=== PATIENT | female | born 1945 | race Caucasian/White ===

== ENCOUNTER 2016-06-19 10:49 | Emergency (ER) | payer MEDICARE, OTHER ==
[2016-06-19] MEDS ORDERED: DIPH/PERTUSS(ACELL)/TETANUS VAC/PF 0.5 ML SYR (>=10YO) IM ONE ×2 (11:33→12:45)
[2016-06-19] MEDS ORDERED: ACETAMINOPHEN 325 MG TABLET PO ONE (11:36)
--- NOTE | 2016-06-19 11:40 | ER Document Report ---
ED Medical Screen (RME) - General Stated Complaint: NOSE PAIN Time seen by provider: 11:35 Mode of Arrival: Ambulatory Information source: Patient Notes: 71-year-old female slipped on a monkey ball causing her face to hit the cement. She has an abrasion on the bridge of her nose. She did not have a nosebleed. She has a 3/5 frontal headache. No neck tenderness. I have greeted and performed a rapid initial assessment of this patient. A comprehensive ED assessment, evaluation of the patient, analysis of test results , and completion of the medical decision making process will be contacted by additional ED providers. 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
[2016-06-19] MEDS ORDERED: LIDOCAINE 1% INJ-PF (10 MG/ML) 30 ML SDV INJ ONE (12:56)
--- NOTE | 2016-06-19 13:33 | ER Document Report ---
ED General - General Chief Complaint: Facial Injury Stated Complaint: NOSE PAIN Mode of Arrival: Ambulatory Information source: Patient Notes: 71-year-old female presents after a mechanical fall striking her face. Patient denies any loss of consciousness, denies any other injuries. TRAVEL OUTSIDE OF THE [place] IN LAST 30 DAYS: No - HPI Onset: Just prior to arrival Onset/Duration: Sudden Quality of pain: Achy Severity: Mild Pain Level: Denies Associated symptoms: Other Exacerbated by: Denies Relieved by: Denies Similar symptoms previously: No Recently seen / treated by doctor: No - Related Data Allergies/Adverse Reactions: meperidine HCl [From Demerol] Allergy (Verified 06/19/16 11:32) Sulfa (Sulfonamide Antibiotics) Allergy (Verified 06/19/16 11:32) Past Medical History - General Information source: Patient - Social History Smoking Status: Never Smoker Cigarette use (# per day): No Chew tobacco use (# tins/day): No Smoking Education Provided: No Frequency of alcohol use: None Drug Abuse: None Family History: Reviewed & Not Pertinent Patient has suicidal ideation: No Patient has homicidal ideation: No - Past Medical History Cardiac Medical History: Reports: Hx Hypercholesterolemia, Hx Hypertension Endocrine Medical History: Reports: 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 Denies recent illness. EENT: Denies eye, ear, throat, or mouth pain or symptoms. Denies nasal or sinus congestion or discharge. Denies throat, tongue, or mouth swelling or difficulty swallowing. CARDIOVASCULAR: Denies chest pain. Denies palpitations or racing or irregular heart beat. Denies ankle edema. RESPIRATORY: Denies cough, cold, or chest congestion. Denies shortness of breath, difficulty breathing, or wheezing. GASTROINTESTINAL: Denies abdominal pain or distention. Denies nausea, vomiting , or diarrhea. Denies blood in vomitus, stools, or per rectum. Denies black, tarry stools. Denies constipation. GENITOURINARY: Denies difficulty urinating, painful urination, burning, frequency, blood in urine, or discharge. FEMALE GENITOURINARY: Denies vaginal bleeding, heavy or abnormal periods, irregular periods. Denies vaginal discharge or odor. MUSCULOSKELETAL: Denies back or neck pain or stiffness. Denies joint pain or swelling. SKIN: Admits to facial injury HEMATOLOGIC : Denies easy bruising or bleeding. LYMPHATIC: Denies swollen, enlarged glands. NEUROLOGICAL: Denies confusion or altered mental status. Denies passing out or loss of consciousness. Denies dizziness or lightheadedness. Denies headache. Denies weakness or paralysis or loss of use of either side. Denies problems with gait or speech. Denies sensory loss, numbness, or tingling. Denies seizures. PSYCHIATRIC: Denies anxiety or stress. Denies depression, suicidal ideation, or homicidal ideation. ALL OTHER SYSTEMS REVIEWED AND NEGATIVE. Dictation was performed using icix voice recognition software PHYSICAL EXAMINATION: GENERAL: Well-appearing, well-nourished and in no acute distress. HEAD: Superficial abrasions of the face nasal swelling EYES: Pupils equal round and reactive to light, extraocular movements intact, conjunctiva are normal. Left infraorbital ecchymosis ENT: Nares patent, oropharynx clear without exudates. Moist mucous membranes. NECK: Normal range of motion, supple without lymphadenopathy LUNGS: Breath sounds clear to auscultation bilaterally and equal. No wheezes rales or rhonchi. HEART: Regular rate and rhythm without murmurs ABDOMEN: Soft, nontender, nondistended abdomen. No guarding, no rebound. No masses appreciated. Female : deferred Musculoskeletal: Normal range of motion, no pitting or edema. No cyanosis. NEUROLOGICAL: Cranial nerves grossly intact. Normal speech, normal gait. Normal sensory, motor exams PSYCH: Normal mood, normal affect. SKIN: 2 cm laceration of the nasal bridge no active bleeding Physical Exam - Vital signs Vitals: Temp Pulse Resp BP Pulse Ox 97.7 F 71 18 148/76 H 98 06/19/16 11:03 06/19/16 11:03 06/19/16 11:03 06/19/16 11:03 06/19/16 11:03 Course - Re-evaluation Re-evalutation: 06/19/16 13:31 Area was anesthetized cleansed well 2 sutures were placed patient will be given follow-up in 3-5 days for reevaluation removal of sutures or immediately if there is any worsening symptoms or signs of infection or any other concerns After performing a Medical Screening Examination, I estimate there is LOW risk for INTRACRANIAL HEMORRHAGE, UNSTABLE SPINE FRACTURE, CENTRAL CORD SYNDROME, CAUDA EQUINA, THORACIC AORTIC DISSECTION, PNEUMOTHORAX, PERFORATED BOWEL, RUPTURED ABDOMINAL AORTIC ANEURYSM, ACUTE TENDON RUPTURE, COMPARTMENT SYNDROME, or OPEN FRACTURE, thus I consider the discharge disposition reasonable. Also, there is no evidence or peritonitis, sepsis, or toxicity. The patient and I have discussed the diagnosis and risks, and we agree with discharging home to follow-up with their primary doctor with the understanding that symptoms and presentations can change. We also discussed returning to the Emergency Department immediately if new or worsening symptoms occur. We have discussed the symptoms which are most concerning (e.g., bloody stool, fever, changing or worsening pain, vomiting) that necessitate immediate return. - Vital Signs Vital signs: Temp Pulse Resp BP Pulse Ox 97.7 F 71 18 148/76 H 98 06/19/16 11:03 06/19/16 11:03 06/19/16 11:03 06/19/16 11:03 06/19/16 11:03 - Diagnostic Test Radiology reviewed: Image reviewed, Reports reviewed Procedures - Laceration/Wound Repair Mid- Face Time completed: 13:20 Wound length (cm): 2 Wound's Depth, Shape: Superficial Laceration pre-procedure: Sterile PPE donned Anesthetic type: 1% Lidocaine Volume Anesthetic (mLs): 4 Wound explored: Clean, No foreign body removed Irrigated w/ Saline (mLs): 150 Wound Debrided: Minimal Wound Repaired With: Sutures Suture Size/Type: 5:0, Ethilon Number of Sutures: 2 Post-procedure wound care: Sterile dressing applied Post-procedure NV exam normal: Yes Complications: No Discharge - Discharge Clinical Impression: Facial injury Qualifiers: Encounter type: initial encounter Qualified Code(s): S09.93XA - Unspecified injury of face, initial encounter Nasal laceration Qualifiers: Encounter type: initial encounter Qualified Code(s): S01.21XA - Laceration without foreign body of nose, initial encounter Condition: Stable Disposition: HOME, SELF-CARE Instructions: Laceration Care ([facility]), Tetanus Immunization Given ([facility]) Referrals: DEVAN HOPSON MD [Primary Care Provider] - Follow up in 3-5 days
[2016-06-19 14:23] VITALS: BP 137/72
== END 2016-06-19 14:23 | disposition home or self-care (01) ==
LOC: ER 10:49
PROC: 09QKXZZ Repair Nasal Mucosa and Soft Tissue, External Approach (ICD-10-PCS; principal; 2016-06-19)
DX: S01.21XA Laceration without foreign body of nose, initial encounter (principal); W01.0XXA Fall on same level from slipping, tripping and stumbling without subsequent striking against object, initial encounter; Y92.008 Other place in unspecified non-institutional (private) residence as the place of occurrence of the external cause; E11.9 Type 2 diabetes mellitus without complications; I10 Essential (primary) hypertension; Z88.0 Allergy status to penicillin; Z88.2 Allergy status to sulfonamides
CPT/HCPCS: 99284; 90471; 70486; 72125; 90715; 12011; A9270

== ENCOUNTER 2016-06-24 07:14 | Emergency (ER) | payer MEDICARE, OTHER ==
[2016-06-24 07:26] VITALS: BP 165/75
--- NOTE | 2016-06-24 07:42 | ER Document Report ---
HPI - HPI Patient complains to provider of: suture removal Onset: Other - 5 days ago Quality of pain: No pain Pain Level: Denies Context: 71-year-old injured her face when she slipped and fell on a monkey ball in the yard. 2 sutures are placed on her nose. Associated Symptoms: None Exacerbated by: Denies Relieved by: Denies Similar symptoms previously: No Recently seen / treated by doctor: Yes - ROS ROS below otherwise negative: Yes Systems Reviewed and Negative: Yes All other systems reviewed and negative - REPRODUCTIVE Reproductive: DENIES: : - DERM Skin Color: Normal Past Medical History - General Information source: Patient - Social History Smoking Status: Never Smoker Chew tobacco use (# tins/day): No Frequency of alcohol use: None Drug Abuse: None Family History: Reviewed & Not Pertinent Patient has suicidal ideation: No Patient has homicidal ideation: No - Past Medical History Cardiac Medical History: Reports: Hx Hypercholesterolemia, Hx Hypertension Endocrine Medical History: Reports: 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 IN LAST 30 DAYS: No - HEENT Notes: Healing abrasions to her face and 2 sutures of bridge of her nose need to be removed. No skin infection. There is at lower lip healing abrasion in the central buccal mucosa - NECK Neck: Supple - RESPIRATORY O2 Sat by Pulse Oximetry: 96 - NEURO Level of Consciousness: Awake - See above, Alert - DERM Integumentary: Warm, Dry, Laceration Course - Vital Signs Vital signs: Temp Pulse Resp BP Pulse Ox 97.8 F 99 16 165/75 H 96 06/24/16 07:24 06/24/16 07:24 06/24/16 07:24 06/24/16 07:24 06/24/16 07:24 Discharge - Discharge Clinical Impression: nose suture removal Condition: Good Disposition: HOME, SELF-CARE Instructions: Suture Removal Additional Instructions: to er any concerns
== END 2016-06-24 07:55 | disposition home or self-care (01) ==
LOC: ER 07:14
DX: Z48.02 Encounter for removal of sutures (principal)